=== PATIENT | female | born 1950 | race Two or more races ===

== ENCOUNTER 2017-08-03 07:00 | Outpatient (CLI) | payer OTHER ==
[~2017-08-03 07:00] MED LIST: LOTRIMIN AF12 GM TOP; NABUMETONE500 MG PO; PERCOCET 5/3251 TAB PO; PROVENTIL3 ML/2.5 M IH; SYNTHROID125 MCG PO; SYNTHROID75 MCG; VENTOLIN HFA18 GM IH
== END 2017-08-03 07:09 | disposition home or self-care (01) ==
LOC: LAB 07:00
DX: D64.89 Other specified anemias (principal); E11.9 Type 2 diabetes mellitus without complications; E78.2 Mixed hyperlipidemia; I10 Essential (primary) hypertension; E03.8 Other specified hypothyroidism

== ENCOUNTER 2017-09-28 07:39 | Outpatient (CLI) | payer OTHER | END 2017-09-28 07:49 | disposition home or self-care (01) | LOC: LAB 07:39 | DX: E04.1 Nontoxic single thyroid nodule (principal); E78.2 Mixed hyperlipidemia; N30.00 Acute cystitis without hematuria; R82.79 Other abnormal findings on microbiological examination of urine ==

== ENCOUNTER 2018-02-10 07:42 | Outpatient (CLI) | payer OTHER | END 2018-02-10 08:03 | disposition home or self-care (01) | LOC: LAB 07:42 | DX: D64.89 Other specified anemias (principal); I10 Essential (primary) hypertension; E11.9 Type 2 diabetes mellitus without complications; E78.2 Mixed hyperlipidemia; E03.8 Other specified hypothyroidism ==

== ENCOUNTER → 2018-02-13 12:54 | Outpatient (CLI) | payer OTHER | END | disposition home or self-care (01) | LOC: LAB 12:54 | DX: N30.01 Acute cystitis with hematuria (principal) ==

== ENCOUNTER 2018-05-29 06:47 | Outpatient (CLI) | payer OTHER | END 2018-05-29 06:52 | disposition home or self-care (01) | LOC: LAB 06:47 | DX: E03.8 Other specified hypothyroidism (principal); E78.2 Mixed hyperlipidemia; E55.9 Vitamin D deficiency, unspecified ==

== ENCOUNTER 2018-08-22 07:29 | Outpatient (CLI) | payer OTHER | END 2018-08-22 07:56 | disposition home or self-care (01) | LOC: LAB 07:29 | DX: D64.89 Other specified anemias (principal); E11.9 Type 2 diabetes mellitus without complications; E78.2 Mixed hyperlipidemia; I10 Essential (primary) hypertension; E03.8 Other specified hypothyroidism ==

== ENCOUNTER 2018-09-21 07:02 | Outpatient (CLI) | payer OTHER | END 2018-09-21 07:29 | disposition home or self-care (01) | LOC: LAB 07:02 | DX: D64.89 Other specified anemias (principal); E11.8 Type 2 diabetes mellitus with unspecified complications; E78.49 Other hyperlipidemia; I10 Essential (primary) hypertension; E03.8 Other specified hypothyroidism ==

== ENCOUNTER 2019-01-17 08:28 | Outpatient (CLI) | payer OTHER | END 2019-01-17 08:41 | disposition home or self-care (01) | LOC: LAB 08:28 | DX: D64.89 Other specified anemias (principal); E11.9 Type 2 diabetes mellitus without complications; E78.2 Mixed hyperlipidemia; K76.89 Other specified diseases of liver; E03.8 Other specified hypothyroidism; E55.9 Vitamin D deficiency, unspecified; R29.898 Other symptoms and signs involving the musculoskeletal system ==

== ENCOUNTER 2019-04-23 06:53 | Outpatient (CLI) | payer OTHER | END 2019-04-23 07:06 | disposition home or self-care (01) | LOC: LAB 06:53 | DX: D64.89 Other specified anemias (principal); E11.9 Type 2 diabetes mellitus without complications; E78.2 Mixed hyperlipidemia; E03.8 Other specified hypothyroidism; I10 Essential (primary) hypertension ==

== ENCOUNTER 2019-05-24 08:27 | Outpatient (CLI) | payer OTHER | END 2019-05-24 08:37 | disposition home or self-care (01) | LOC: TOM 08:27 | DX: R10.84 Generalized abdominal pain (principal) ==

== ENCOUNTER 2019-08-18 09:45 | Outpatient (CLI) | payer OTHER | END 2019-08-18 09:55 | disposition home or self-care (01) | LOC: LAB 09:45 | DX: D64.89 Other specified anemias (principal); E11.9 Type 2 diabetes mellitus without complications; E78.2 Mixed hyperlipidemia; I10 Essential (primary) hypertension; E03.8 Other specified hypothyroidism ==

== ENCOUNTER 2019-08-24 14:20 | Outpatient (CLI) | payer OTHER | END 2019-08-24 15:20 | disposition home or self-care (01) | LOC: NUCLEAR 14:20 | DX: M81.0 Age-related osteoporosis without current pathological fracture (principal) ==

== ENCOUNTER 2020-02-07 13:37 | Outpatient (CLI) | payer OTHER | END 2020-02-07 14:11 | disposition home or self-care (01) | LOC: MAMO-SONO 13:37 | PROVIDERS: ATTEND Specialist | DX: Z12.31 Encounter for screening mammogram for malignant neoplasm of breast (principal); N60.11 Diffuse cystic mastopathy of right breast; N60.12 Diffuse cystic mastopathy of left breast ==

== ENCOUNTER 2020-03-11 06:52 | Outpatient (CLI) | payer OTHER | END 2020-03-11 07:00 | disposition home or self-care (01) | LOC: LAB 06:52 | PROVIDERS: ATTEND Internal Medicine Sports Medicine | DX: D64.89 Other specified anemias (principal); E11.9 Type 2 diabetes mellitus without complications; E78.2 Mixed hyperlipidemia; I10 Essential (primary) hypertension; E03.8 Other specified hypothyroidism ==

== ENCOUNTER → 2020-05-19 07:07 | Outpatient (CLI) | payer OTHER | END | disposition home or self-care (01) | LOC: LAB 07:07 | PROVIDERS: ATTEND Internal Medicine Sports Medicine | DX: Z20.828 Contact with and (suspected) exposure to other viral communicable diseases (principal); E03.8 Other specified hypothyroidism; E04.8 Other specified nontoxic goiter ==

== ENCOUNTER 2020-08-22 08:02 | Outpatient (CLI) | payer OTHER | END 2020-08-22 08:19 | disposition home or self-care (01) | LOC: LAB 08:02 | PROVIDERS: ATTEND Internal Medicine Sports Medicine | DX: D64.89 Other specified anemias (principal); E11.9 Type 2 diabetes mellitus without complications; E78.2 Mixed hyperlipidemia; E03.8 Other specified hypothyroidism; I10 Essential (primary) hypertension ==

== ENCOUNTER 2020-10-08 11:23 | Outpatient (CLI) | payer OTHER | END 2020-10-08 13:08 | disposition home or self-care (01) | LOC: OFIC 805 11:23 | PROVIDERS: ATTEND Otolaryngology Otology & Neurotology | DX: H81.12 Benign paroxysmal vertigo, left ear (principal) ==

== ENCOUNTER 2020-11-25 07:14 | Outpatient (CLI) | payer OTHER | END 2020-11-25 07:22 | disposition home or self-care (01) | LOC: LAB 07:14 | PROVIDERS: ATTEND Internal Medicine Sports Medicine | DX: E03.8 Other specified hypothyroidism (principal); E04.1 Nontoxic single thyroid nodule; E78.2 Mixed hyperlipidemia; E55.9 Vitamin D deficiency, unspecified ==

== ENCOUNTER 2020-12-10 10:08 | Outpatient (CLI) | payer OTHER | END 2020-12-10 10:25 | disposition home or self-care (01) | LOC: TOM 10:08 | PROVIDERS: ATTEND Internal Medicine Sports Medicine | DX: J32.8 Other chronic sinusitis (principal) ==

== ENCOUNTER 2021-02-09 09:46 | Outpatient (CLI) | payer OTHER | END 2021-02-09 09:53 | disposition home or self-care (01) | LOC: MAMO-SONO 09:46 | PROVIDERS: ATTEND Specialist | DX: E04.1 Nontoxic single thyroid nodule (principal); Z12.31 Encounter for screening mammogram for malignant neoplasm of breast; Z87.898 Personal history of other specified conditions; N64.59 Other signs and symptoms in breast; N60.11 Diffuse cystic mastopathy of right breast; N60.12 Diffuse cystic mastopathy of left breast ==

== ENCOUNTER → 2021-04-13 06:55 | Outpatient (CLI) | payer OTHER | END | disposition home or self-care (01) | LOC: LAB 06:55 | PROVIDERS: ATTEND Internal Medicine Endocrinology, Diabetes & Metabolism | DX: D64.89 Other specified anemias (principal); D51.0 Vitamin B12 deficiency anemia due to intrinsic factor deficiency; E03.8 Other specified hypothyroidism; I10 Essential (primary) hypertension; E78.2 Mixed hyperlipidemia; E11.9 Type 2 diabetes mellitus without complications ==

== ENCOUNTER 2021-04-23 13:10 | Outpatient (CLI) | payer OTHER | END 2021-04-23 13:15 | disposition home or self-care (01) | LOC: NUCLEAR 13:10 | PROVIDERS: ATTEND Internal Medicine Sports Medicine | DX: M81.0 Age-related osteoporosis without current pathological fracture (principal) ==

== ENCOUNTER 2021-04-24 09:50 | Outpatient (CLI) | payer OTHER | END 2021-04-24 10:15 | disposition home or self-care (01) | LOC: PPH VACUNA 09:50 | PROVIDERS: ATTEND Emergency Medicine Pediatric Emergency Medicine | DX: Z23 Encounter for immunization (principal) ==

== ENCOUNTER 2021-04-27 13:03 | Emergency (ER) | payer OTHER ==
[~2021-04-27] VITALS: Ht 160 cm; Wt 69.4 kg
[2021-04-27] MEDS ORDERED: DICLOFENAC SODI50 MG PO (16:40)
== END 2021-04-27 17:53 | disposition home or self-care (01) ==
LOC: ER 13:03
DX: S90.122A Contusion of left lesser toe(s) without damage to nail, initial encounter (principal); W18.09XA Striking against other object with subsequent fall, initial encounter; Y93.89 Activity, other specified; Y92.512 Supermarket, store or market as the place of occurrence of the external cause; Y99.8 Other external cause status

== ENCOUNTER 2021-06-08 12:51 | Outpatient (CLI) | payer OTHER ==
[~2021-06-08 12:51] MED LIST changes: +DICLOFENAC SODI50 MG PO
== END 2021-06-08 12:59 | disposition home or self-care (01) ==
LOC: MRI 12:51
PROVIDERS: ATTEND Orthopaedic Surgery
DX: M48.02 Spinal stenosis, cervical region (principal); M47.892 Other spondylosis, cervical region
CPT/HCPCS: 72141

== ENCOUNTER 2021-06-15 08:57 | Outpatient (CLI) | payer OTHER | END 2021-06-15 09:05 | disposition home or self-care (01) | LOC: LAB 08:57 | PROVIDERS: ATTEND Internal Medicine Endocrinology, Diabetes & Metabolism | DX: E03.8 Other specified hypothyroidism (principal); E55.9 Vitamin D deficiency, unspecified; I10 Essential (primary) hypertension; E78.2 Mixed hyperlipidemia ==

== ENCOUNTER 2021-09-11 07:44 | Outpatient (CLI) | payer OTHER | END 2021-09-11 07:59 | disposition home or self-care (01) | LOC: LAB 07:44 | PROVIDERS: ATTEND Internal Medicine Sports Medicine | DX: D64.9 Anemia, unspecified (principal); E11.9 Type 2 diabetes mellitus without complications; E78.2 Mixed hyperlipidemia; I10 Essential (primary) hypertension; E03.8 Other specified hypothyroidism ==

== ENCOUNTER 2021-12-07 12:30 | Outpatient (CLI) | payer OTHER | END 2021-12-07 13:00 | disposition home or self-care (01) | LOC: PPH VACUNA 12:30 | PROVIDERS: ATTEND Emergency Medicine Pediatric Emergency Medicine | DX: Z23 Encounter for immunization (principal) ==

== ENCOUNTER 2022-07-08 11:05 | Outpatient (CLI) | payer OTHER | END 2022-07-08 11:16 | disposition home or self-care (01) | LOC: MAMO-SONO 11:05 | PROVIDERS: ATTEND Specialist | DX: N60.11 Diffuse cystic mastopathy of right breast (principal); N60.12 Diffuse cystic mastopathy of left breast; J44.1 Chronic obstructive pulmonary disease with (acute) exacerbation; J44.9 Chronic obstructive pulmonary disease, unspecified ==

== ENCOUNTER 2022-08-13 09:32 | Outpatient (CLI) | payer OTHER | END 2022-08-13 09:41 | disposition home or self-care (01) | LOC: TOM 09:32 | PROVIDERS: ATTEND Internal Medicine Pulmonary Disease | DX: J45.30 Mild persistent asthma, uncomplicated (principal); J98.11 Atelectasis; Z86.16 Personal history of COVID-19; R06.02 Shortness of breath ==

== ENCOUNTER 2022-09-11 08:03 | Outpatient (CLI) | payer OTHER | END 2022-09-11 08:11 | disposition home or self-care (01) | LOC: LAB 08:03 | PROVIDERS: ATTEND Internal Medicine Sports Medicine | DX: E03.8 Other specified hypothyroidism (principal); E78.2 Mixed hyperlipidemia; E04.1 Nontoxic single thyroid nodule ==

== ENCOUNTER 2023-01-21 08:02 | Outpatient (CLI) | payer OTHER | END 2023-01-21 08:03 | disposition home or self-care (01) | LOC: LAB 08:02 | PROVIDERS: ATTEND Internal Medicine Sports Medicine | DX: D64.9 Anemia, unspecified (principal); E11.9 Type 2 diabetes mellitus without complications; E78.2 Mixed hyperlipidemia; I10 Essential (primary) hypertension; E03.8 Other specified hypothyroidism; E55.9 Vitamin D deficiency, unspecified ==

== ENCOUNTER 2023-07-19 11:40 | Outpatient (CLI) | payer OTHER | END 2023-07-19 11:52 | disposition home or self-care (01) | LOC: MAMO-SONO 11:40 | PROVIDERS: ATTEND Internal Medicine Sports Medicine | DX: N60.11 Diffuse cystic mastopathy of right breast (principal); N60.12 Diffuse cystic mastopathy of left breast ==

== ENCOUNTER → 2023-07-21 14:04 | Outpatient (CLI) | payer OTHER | END | disposition home or self-care (01) | LOC: NUCLEAR 13:15 | PROVIDERS: ATTEND Internal Medicine Sports Medicine | DX: M81.0 Age-related osteoporosis without current pathological fracture (principal) ==

== ENCOUNTER 2023-08-20 07:34 | Outpatient (CLI) | payer OTHER ==
[2023-08-20 09:31] LABS: HEMATOCRIT 38.8 % (36.0-45.00); HEMOGLOBIN 13.3 g/dL (12.0-15.00); MEAN CELL VOLUME 90.6 fL (80.00-100.00); MEAN CORPUSCULAR HEMOGLOBIN 31.1 pg (27.00-32.0); MEAN CORPUSCULAR HGB CONC 34.3 g/dl (32.0-36.0); PLATELET COUNT 259 K/uL (150-450); RED BLOOD COUNT 4.28 M/uL (4.00-6.00)
[2023-08-20 09:45] LABS: URINE APPEARANCE Cloudy; URINE BILIRRUBIN Negative (NEGATIVE); URINE BLOOD Negative; URINE COLOR Yellow; URINE GLUCOSE Negative (NEGATIVE); URINE LEUKOCYTE Trace; URINE NITRATE Negative; URINE PROTEIN Negative (NEGATIVE); URINE UROBILINOGEN 0.2 E.U./dl
[2023-08-20 09:49] LABS: URINE BACTERIA 854.2 uL (0.0-1933); URINE EPITHELIAL CELLS 168.6 uL (0.0-38.8); URINE RBC 6.8 uL (0.0-20.8); URINE WBC 12.3 uL (0.0-23.2)
[2023-08-20 10:14] LABS: ALBUMIN 3.7 gm/dL (3.4-5.0); BILIRUBIN TOTAL 0.65 mg/dL (0.3-1.2); CALCIUM 9.1 mg/dL (8.5-10.1); CHOL HDL RATIO 2.7 (0-5.0); CREATININE SERUM 0.65 mg/dL (0.55-1.02); GFR 88.86; GLOBULINA 2.9 G/DL (2.4-3.5); POTASSIUM 4.32 mEq/L (3.5-5.1); T4 FREE 1.26 NG/ML (0.76-1.46); TOTAL PROTEIN 6.6 gm/dL (6.4-8.2); TSH 0.733 uIU/mL (0.358-3.74)
[2023-08-20 10:55] LABS: URINE MUCUS SCANT
== END 2023-08-20 07:35 | disposition home or self-care (01) ==
LOC: LAB 07:34
PROVIDERS: ATTEND Internal Medicine Sports Medicine
DX: E78.2 Mixed hyperlipidemia (principal); I11.9 Hypertensive heart disease without heart failure; E11.9 Type 2 diabetes mellitus without complications; E03.9 Hypothyroidism, unspecified; D64.9 Anemia, unspecified; I10 Essential (primary) hypertension; E03.8 Other specified hypothyroidism

== ENCOUNTER 2024-02-13 09:05 | Outpatient (CLI) | payer OTHER ==
[2024-02-13 10:43] LABS: ob NEGATIVE (NEGATIVE)
== END 2024-02-13 09:19 | disposition home or self-care (01) ==
LOC: LAB 09:05
PROVIDERS: ATTEND Internal Medicine Sports Medicine
DX: D50.9 Iron deficiency anemia, unspecified (principal)

== ENCOUNTER 2024-02-15 07:23 | Outpatient (CLI) | payer OTHER ==
[2024-02-15 07:59] LABS: HEMATOCRIT 37.2 % (36.0-45.00); MEAN CELL VOLUME 88.2 fL (80.00-100.00); MEAN CORPUSCULAR HEMOGLOBIN 30.9 pg (27.00-32.0); PLATELET COUNT 248 K/uL (150-450); RED BLOOD COUNT 4.21 M/uL (4.00-6.00); RED CELL DISTRIBUTION WIDTH 13.3 % (11.5-14.5)
[2024-02-15 08:32] LABS: URINE APPEARANCE Clear; URINE BILIRRUBIN Negative (NEGATIVE); URINE BLOOD Negative; URINE COLOR Yellow; URINE GLUCOSE Negative (NEGATIVE); URINE KETONE Trace (NEGATIVE); URINE LEUKOCYTE Negative; URINE NITRATE Negative; URINE PROTEIN Negative (NEGATIVE); URINE UROBILINOGEN 0.2 E.U./dl
[2024-02-15 08:36] LABS: URINE BACTERIA 414.5 uL (0.0-1933); URINE EPITHELIAL CELLS 44.1 uL (0.0-38.8); URINE RBC 4.7 uL (0.0-20.8); URINE WBC 15.3 uL (0.0-23.2)
[2024-02-15 09:21] LABS: ALBUMIN 3.7 gm/dL (3.4-5.0); BILIRUBIN TOTAL 0.66 mg/dL (0.3-1.2); CHOL HDL RATIO 3.2 (0-5.0); CREATININE SERUM 0.69 mg/dL (0.55-1.02); GFR 82.94; GLOBULINA 3.2 G/DL (2.4-3.5); POTASSIUM 4.65 mEq/L (3.5-5.1); T4 FREE 1.26 NG/ML (0.76-1.46); TOTAL PROTEIN 6.9 gm/dL (6.4-8.2)
[2024-02-15 09:23] LABS: TSH 0.179 uIU/mL (0.358-3.74)
== END 2024-02-15 07:32 | disposition home or self-care (01) ==
LOC: LAB 07:23
PROVIDERS: ATTEND Internal Medicine Sports Medicine
DX: D64.9 Anemia, unspecified (principal); E55.9 Vitamin D deficiency, unspecified; E11.9 Type 2 diabetes mellitus without complications; E78.2 Mixed hyperlipidemia; E03.8 Other specified hypothyroidism

== ENCOUNTER 2024-03-20 09:31 | Outpatient (CLI) | payer OTHER ==
[2024-03-20 11:49] LABS: MYCOPLASMA PNEUMONIAE IGM NON REACTIVE (NO REACTIVE)
== END 2024-03-20 09:48 | disposition home or self-care (01) ==
LOC: LAB 09:31
PROVIDERS: ATTEND Internal Medicine Pulmonary Disease
DX: J45.51 Severe persistent asthma with (acute) exacerbation (principal); J12.82 Pneumonia due to coronavirus disease 2019; J09.X2 Influenza due to identified novel influenza A virus with other respiratory manifestations; J10.1 Influenza due to other identified influenza virus with other respiratory manifestations; R50.9 Fever, unspecified

== ENCOUNTER 2024-03-31 11:10 | Inpatient (IN) | payer OTHER ==
[~2024-03-31] VITALS: Ht 165.1 cm; Wt 68.0 kg
--- NOTE | 2024-03-31 11:22 | NUR ---
PACIENTE ALERTA Y ORIENTADA X3 QUIEN REFIERE BOBO DOLOR EN EL AREA DEL ABDOMEN LADO DERECHO Y VOMITOS DESDE LA MADRUGADA.
[2024-03-31] MEDS ORDERED: ONDANSETRON HCL 2 MG/ML VIAL ONE ×2 (11:44→18:20)
[2024-03-31] MEDS ORDERED: KETOROLAC TROMETHAMINE 60 MG VIAL IM ONE ×2 (11:44→11:45)
[2024-03-31] MEDS ORDERED: 0.9 % SODIUM CHLORIDE 1,000 ML IV ONE (11:45)
[2024-03-31] MEDS ORDERED: ONDANSETRON HCL 2 MG/ML VIAL IV ONE (11:45)
[2024-03-31] MEDS ORDERED: FAMOtidine 10 MG/ML (4ML VIAL) IV ONE (11:45)
[2024-03-31] MEDS ORDERED: FAMOTIDINE/PF 20 MG/2 ML VIAL ONE ×2 (11:45→17:15)
--- NOTE | 2024-03-31 12:04 | NUR ---
PTE ALERTA Y ORIENTADA X3. GAMAL VENEGAS EDUCA A PTE SOBRE TX MEDICO, LA MISMA REFIERE ENTENDER. SE WENDI MUESTRAS DE LAB Y SE ADMINISTRAN MEDICAMENTOS BAJO MEIDAS ASEPTICAS, SE HACE ENTREGA DE ENVASE PARA U/A PENDIENTE.
[2024-03-31 12:09] LABS: HEMATOCRIT 40.3 % (36.0-45.00); HEMOGLOBIN 13.7 g/dL (12.0-15.00); MEAN CELL VOLUME 89.1 fL (80.00-100.00); MEAN CORPUSCULAR HEMOGLOBIN 30.3 pg (27.00-32.0); PLATELET COUNT 269 K/uL (150-450); RED BLOOD COUNT 4.52 M/uL (4.00-6.00); RED CELL DISTRIBUTION WIDTH 13.9 % (11.5-14.5)
[2024-03-31 12:20] LABS: INR 0.98; PARTIAL THROMBOPLASTIN TIME 24.8 SECONDS (22.0-34.0); PROTHROMBIN TIME 10.7 SECONDS (9.0-11.5)
[2024-03-31 12:41] LABS: ALBUMIN 3.4 gm/dL (3.4-5.0); BILIRUBIN TOTAL 0.94 mg/dL (0.3-1.2); CREATININE SERUM 0.87 mg/dL (0.55-1.02); GFR 63.47; GLOBULINA 3.1 G/DL (2.4-3.5); POTASSIUM 3.31 mEq/L (3.5-5.1); TOTAL PROTEIN 6.5 gm/dL (6.4-8.2)
--- NOTE | 2024-03-31 15:56 | NUR ---
PTE ALERTA Y ORIENTADA X3 EN CAMA CON BARANDAS ELEVADAS. PENDIENTE CONSULTA CON MD MIKY DOOLEY. SE MANTIENE BAJO OBSERVACION POR CAMBIOS SIGNIFICATIVOS.
[2024-03-31] MEDS ORDERED: PIPERACILLIN/TAZOBACTAM SODIUM 3.375 GM VIAL IV ONE ×2 (16:45→17:15)
[2024-03-31] MEDS ORDERED: ONDANSETRON HCL 4 MG in 0.9 % SODIUM CHLORIDE 50 ML IV PRN (16:45)
[2024-03-31] MEDS ORDERED: 0.9 % SODIUM CHLORIDE 1,000 ML IV SCH (16:45)
[2024-03-31] MEDS ORDERED: FAMOTIDINE/PF 20 MG in 0.9 % SODIUM CHLORIDE 100 ML IV SCH (17:00)
[2024-03-31 18:15] VITALS: BP 98/55; O2SAT 98
[2024-03-31] MEDS ORDERED: SUGAMMADEX SODIUM 200 MG/2 ML VIAL IV ONE ×2 (21:58→22:15)
[2024-03-31] MEDS ORDERED: MORPHINE SULFATE 4 MG/ML VIAL IV ONE (23:10)
[2024-03-31] MEDS ORDERED: MEPERIDINE HCL 25 MG/ML AMPUL IV ONE (23:40)
[2024-04-01] MEDS ORDERED: ONDANSETRON HCL 2 MG/ML VIAL ONE (00:39)
[2024-04-01 01:17] VITALS: BP 99/53; O2SAT 99
[2024-04-01] MEDS ORDERED: KETOROLAC TROMETHAMINE 30 MG VIAL IV PRN (04:30)
[2024-04-01] MEDS ORDERED: METOCLOPRAMIDE HCL 5 MG/ML VIAL IV SCH (05:00)
[2024-04-01 08:00] VITALS: BP 142/65; O2SAT 95
[2024-04-01] MEDS ORDERED: SIMETHICONE 125 MG CAPSULE PO SCH (09:00)
[2024-04-01] MEDS ORDERED: SUCRALFATE 1 G TABLET PO SCH (09:00)
[2024-04-01 11:55] LABS: CREATININE SERUM 0.74 mg/dL (0.55-1.02); GFR 76.51; POTASSIUM 4.69 mEq/L (3.5-5.1)
[2024-04-01 16:30] VITALS: BP 165/72; O2SAT 98
[2024-04-01] MEDS ORDERED: PIPERACILLIN/TAZOBACTAM SODIUM 3.375 GM VIAL IV SCH (20:00)
[2024-04-02 00:48] VITALS: BP 136/79; O2SAT 100
[2024-04-02 08:53] VITALS: BP 138/68; O2SAT 94
[2024-04-02 17:27] VITALS: BP 179/79; O2SAT 96
[2024-04-03 00:33] VITALS: BP 150/71; O2SAT 95
[2024-04-03 07:01] LABS: HEMATOCRIT 32.4 % (36.0-45.00); HEMOGLOBIN 11.3 g/dL (12.0-15.00); MEAN CELL VOLUME 89.1 fL (80.00-100.00); MEAN CORPUSCULAR HEMOGLOBIN 31.1 pg (27.00-32.0); MEAN CORPUSCULAR HGB CONC 34.9 g/dl (32.0-36.0); PLATELET COUNT 173 K/uL (150-450); RED BLOOD COUNT 3.64 M/uL (4.00-6.00); RED CELL DISTRIBUTION WIDTH 13.6 % (11.5-14.5)
[2024-04-03 09:18] VITALS: BP 125/72; O2SAT 96
[2024-04-03 16:00] VITALS: BP 150/68; O2SAT 97
[2024-04-04 00:14] VITALS: BP 141/69; O2SAT 95
[2024-04-04 08:00] VITALS: BP 115/80; O2SAT 96
[2024-04-04 16:00] VITALS: BP 155/70; O2SAT 96
[2024-04-04 23:58] VITALS: BP 143/61; O2SAT 94
[2024-04-05 08:40] VITALS: BP 153/68; O2SAT 97
[2024-04-05 16:00] VITALS: BP 167/74; O2SAT 96
[2024-04-05] MEDS ORDERED: BUDESONIDE 0.5 MG/2 ML AMPUL.NEB IH ONE (17:49)
[2024-04-05] MEDS ORDERED: GUAIFENESIN 200 MG/10 ML BLIST.PACK PO SCH (18:00)
[2024-04-05] MEDS ORDERED: ALBUTEROL SULFATE 3 ML/2.5 MG AMPUL.NEB IH SCH (18:00)
[2024-04-05] MEDS ORDERED: BUDESONIDE 0.25 MG/2 ML AMPUL.NEB IH SCH (21:00)
[2024-04-06 00:06] VITALS: BP 138/75; O2SAT 96
[2024-04-06 08:16] VITALS: BP 166/70; O2SAT 98
== END 2024-04-06 13:25 | disposition home or self-care (01) | DRG 399 ==
LOC: ER 11:11 → SURG 17:17 → SEC-K 17:17 → SURG 22:49
PROVIDERS: General Practice; Internal Medicine Infectious Disease; Surgery; ADMIT Internal Medicine; ATTEND Internal Medicine
PROC: 0W9G4ZZ Drainage of Peritoneal Cavity, Percutaneous Endoscopic Approach (ICD-10-PCS; 2024-03-31)
PROC: BW21YZZ Computerized Tomography (CT Scan) of Abdomen and Pelvis using Other Contrast (ICD-10-PCS; 2024-03-31)
PROC: 0DTJ4ZZ Resection of Appendix, Percutaneous Endoscopic Approach (ICD-10-PCS; principal; 2024-03-31 18:00)
PROC: 3E0F7GC Introduction of Other Therapeutic Substance into Respiratory Tract, Via Natural or Artificial Opening (ICD-10-PCS; 2024-04-05)
DX: K35.33 Acute appendicitis with perforation, localized peritonitis, and gangrene, with abscess (principal); B96.20 Unspecified Escherichia coli [E. coli] as the cause of diseases classified elsewhere; B96.89 Other specified bacterial agents as the cause of diseases classified elsewhere; R05.9 Cough, unspecified; J45.909 Unspecified asthma, uncomplicated; E03.9 Hypothyroidism, unspecified

== ENCOUNTER 2024-06-30 08:53 | Outpatient (CLI) | payer OTHER ==
[2024-06-30 10:51] LABS: T4 FREE 0.97 NG/ML (0.76-1.46)
[2024-06-30 10:58] LABS: TSH 11.1 uIU/mL (0.358-3.74)
== END 2024-06-30 09:01 | disposition home or self-care (01) ==
LOC: LAB 08:53
PROVIDERS: ATTEND Internal Medicine Sports Medicine
DX: E03.8 Other specified hypothyroidism (principal); E04.1 Nontoxic single thyroid nodule; E04.9 Nontoxic goiter, unspecified

== ENCOUNTER 2024-08-09 23:53 | Emergency (ER) | payer OTHER ==
[~2024-08-09] VITALS: Ht 160 cm; Wt 67.1 kg
[2024-08-10] MEDS ORDERED: ACETAMINOPHEN 500 MG GEL..CAP PO ONE (03:49)
[2024-08-10 03:55] LABS: HEMATOCRIT 39.6 % (36.0-45.00); HEMOGLOBIN 13.6 g/dL (12.0-15.00); MEAN CELL VOLUME 88.9 fL (80.00-100.00); MEAN CORPUSCULAR HEMOGLOBIN 30.4 pg (27.00-32.0); MEAN CORPUSCULAR HGB CONC 34.2 g/dl (32.0-36.0); PLATELET COUNT 266 K/uL (150-450); RED BLOOD COUNT 4.45 M/uL (4.00-6.00)
[2024-08-10 04:23] LABS: ALBUMIN 3.7 gm/dL (3.4-5.0); BILIRUBIN TOTAL 0.4 mg/dL (0.3-1.2); CALCIUM 9.2 mg/dL (8.5-10.1); CREATININE SERUM 0.72 mg/dL (0.55-1.02); GFR 78.75; GLOBULINA 3.7 G/DL (2.4-3.5); POTASSIUM 4.31 mEq/L (3.5-5.1); TOTAL PROTEIN 7.4 gm/dL (6.4-8.2)
== END 2024-08-10 06:47 | disposition home or self-care (01) ==
LOC: ER 23:53
DX: S00.83XA Contusion of other part of head, initial encounter (principal); W07.XXXA Fall from chair, initial encounter; Y93.89 Activity, other specified; Y92.59 Other trade areas as the place of occurrence of the external cause

== ENCOUNTER 2024-08-14 11:37 | Outpatient (CLI) | payer OTHER | END 2024-08-14 11:55 | disposition home or self-care (01) | LOC: MRI 11:37 | PROVIDERS: ATTEND Internal Medicine Sports Medicine | DX: R07.89 Other chest pain (principal); S00.93XA Contusion of unspecified part of head, initial encounter | CPT/HCPCS: 70551 ==

== ENCOUNTER 2024-11-13 06:43 | Outpatient (CLI) | payer OTHER ==
[2024-11-13 07:22] LABS: URINE APPEARANCE Clear; URINE BILIRRUBIN Negative (NEGATIVE); URINE BLOOD Negative; URINE COLOR Yellow; URINE GLUCOSE Negative (NEGATIVE); URINE KETONE Negative (NEGATIVE); URINE LEUKOCYTE Trace; URINE NITRATE Negative; URINE PROTEIN Negative (NEGATIVE); URINE UROBILINOGEN 0.2 E.U./dl
[2024-11-13 07:26] LABS: URINE BACTERIA 2041.4 uL (0.0-1933); URINE EPITHELIAL CELLS 86.2 uL (0.0-38.8); URINE RBC 4.8 uL (0.0-20.8); URINE WBC 7.9 uL (0.0-23.2)
[2024-11-13 07:33] LABS: HEMATOCRIT 39.3 % (36.0-45.00); HEMOGLOBIN 13.5 g/dL (12.0-15.00); MEAN CELL VOLUME 91.8 fL (80.00-100.00); MEAN CORPUSCULAR HEMOGLOBIN 31.6 pg (27.00-32.0); MEAN CORPUSCULAR HGB CONC 34.5 g/dl (32.0-36.0); PLATELET COUNT 274 K/uL (150-450); RED BLOOD COUNT 4.28 M/uL (4.00-6.00); RED CELL DISTRIBUTION WIDTH 13.2 % (11.5-14.5)
[2024-11-13 07:42] LABS: URINE CAST 0.58 uL (0.0-1.40)
[2024-11-13 08:26] LABS: ALBUMIN 3.5 gm/dL (3.4-5.0); BILIRUBIN TOTAL 0.59 mg/dL (0.3-1.2); CALCIUM 9.2 mg/dL (8.5-10.1); CHOL HDL RATIO 3.6 (0-5.0); CREATININE SERUM 0.71 mg/dL (0.55-1.02); GFR 80.04; GLOBULINA 3.2 G/DL (2.4-3.5); POTASSIUM 4.58 mEq/L (3.5-5.1); T4 FREE 1.14 NG/ML (0.76-1.46); TOTAL PROTEIN 6.7 gm/dL (6.4-8.2)
[2024-11-13 08:37] LABS: TSH 5.31 uIU/mL (0.358-3.74)
== END 2024-11-13 06:56 | disposition home or self-care (01) ==
LOC: LAB 06:43
PROVIDERS: ATTEND Internal Medicine Sports Medicine
DX: D64.9 Anemia, unspecified (principal); E11.9 Type 2 diabetes mellitus without complications; E78.2 Mixed hyperlipidemia; I10 Essential (primary) hypertension; E03.8 Other specified hypothyroidism

== ENCOUNTER 2025-02-11 08:47 | Outpatient (CLI) | payer OTHER ==
[2025-02-11 09:35] LABS: BASO % 0.6 % (0.1-1.2); EOS # 0.29 (0.04-0.54); EOS % 5.7 % (0.7-7.0); LYMPH # 1.29 (1.18-3.74); LYMPH % 25.4 % (19.3-53.1); MEAN PLATELET VOLUME 10.60 fl (9.4-12.4); MONO # 0.36 (0.24-0.82); MONO % 7.1 % (4.7-12.5); NEUT # 3.09 (1.56-6.13); NEUT % 60.8 % (34.0-71.1); RED CELL DISTRIBUTION WIDTH 11.8 % (11.6-14.4)
[2025-02-11 09:39] LABS: URINE APPEARANCE Cloudy; URINE BILIRRUBIN Negative (NEGATIVE); URINE COLOR Yellow; URINE GLUCOSE Negative (NEGATIVE); URINE KETONE Negative (NEGATIVE); URINE LEUKOCYTE Trace; URINE NITRATE Negative; URINE PROTEIN Negative (NEGATIVE); URINE UROBILINOGEN 0.2 E.U./dl
[2025-02-11 09:40] LABS: URINE CAST 3.66 uL (0.0-1.40); URINE EPITHELIAL CELLS 160.7 uL (0.0-38.8); URINE RBC 8.9 uL (0.0-20.8); URINE WBC 96.6 uL (0.0-23.2)
[2025-02-11 09:46] LABS: URINE BACTERIA > 9821.5 uL (0.0-1933); URINE BLOOD TRACES
[2025-02-11 10:35] LABS: ALT/SGPT 18.0 U/L (12-78); AST/SGOT 12.0 U/L (15-37); BILIRUBIN TOTAL 0.59 mg/dL (0.3-1.2); BUN CREA RATIO 19.0 (7.0-25.0); CHOL HDL RATIO 4.0 (0-5.0); CREATININE SERUM 0.63 mg/dL (0.55-1.02); GFR 91.88; GLOBULINA 3.0 G/DL (2.4-3.5); GLUCOSE FASTING 93.0 mg/dL (65-100); HDL 55.0 mg/dl (40-60); LDL 137.0 mg/dl (0-130); OSMOLALITY SERUM 288.0 MOSM/KG (275-295); T4 FREE 1.18 NG/ML (0.76-1.46); TSH 3.09 uIU/mL (0.358-3.74); VLDL 27.0 (0-39)
== END 2025-02-11 08:53 | disposition home or self-care (01) ==
LOC: LAB 08:47
PROVIDERS: ATTEND Internal Medicine Sports Medicine
DX: D64.9 Anemia, unspecified (principal); E11.9 Type 2 diabetes mellitus without complications; E78.2 Mixed hyperlipidemia; I10 Essential (primary) hypertension; E03.8 Other specified hypothyroidism; E55.9 Vitamin D deficiency, unspecified

== ENCOUNTER 2025-02-12 12:13 | Outpatient (CLI) | payer OTHER | END 2025-02-12 12:19 | disposition home or self-care (01) | LOC: MAMO-SONO 12:13 | PROVIDERS: ATTEND Specialist | DX: N60.11 Diffuse cystic mastopathy of right breast (principal); N60.12 Diffuse cystic mastopathy of left breast; Z12.31 Encounter for screening mammogram for malignant neoplasm of breast ==

== ENCOUNTER 2025-02-12 13:30 | Outpatient (CLI) | payer OTHER | END 2025-02-12 13:33 | disposition home or self-care (01) | LOC: LAB 13:30 | PROVIDERS: ATTEND Specialist | DX: N39.0 Urinary tract infection, site not specified (principal) ==

== ENCOUNTER 2025-06-10 08:31 | Outpatient (CLI) | payer OTHER ==
[2025-06-10 10:22] LABS: URINE APPEARANCE Clear; URINE BILIRRUBIN Negative (NEGATIVE); URINE BLOOD Negative; URINE COLOR Yellow; URINE GLUCOSE Negative (NEGATIVE); URINE KETONE Negative (NEGATIVE); URINE LEUKOCYTE Negative; URINE NITRATE Negative; URINE PROTEIN Negative (NEGATIVE); URINE UROBILINOGEN 0.2 E.U./dl
[2025-06-10 10:26] LABS: URINE BACTERIA 88.7 uL (0.0-1933); URINE EPITHELIAL CELLS 3.9 uL (0.0-38.8); URINE RBC 2.6 uL (0.0-20.8); URINE WBC 3.6 uL (0.0-23.2)
[2025-06-10 10:28] LABS: URINE CAST 0.00 uL (0.0-1.40)
[2025-06-10 11:44] LABS: BUN CREA RATIO 20.0 (7.0-25.0); CREATININE SERUM 0.66 mg/dL (0.55-1.02); GFR 87.07; GLUCOSE FASTING 94.0 mg/dL (65-100); OSMOLALITY SERUM 285.0 MOSM/KG (275-295)
== END 2025-06-10 08:32 | disposition home or self-care (01) ==
LOC: LAB 08:31
PROVIDERS: ATTEND Specialist
DX: M26.649 Arthritis of unspecified temporomandibular joint (principal); N39.0 Urinary tract infection, site not specified; R22.1 Localized swelling, mass and lump, neck; D11.0 Benign neoplasm of parotid gland; R22.9 Localized swelling, mass and lump, unspecified

== ENCOUNTER 2025-06-11 09:42 | Outpatient (CLI) | payer OTHER | END 2025-06-11 09:45 | disposition home or self-care (01) | LOC: TOM 09:42 | PROVIDERS: ATTEND Otolaryngology | DX: H91.8X1 Other specified hearing loss, right ear (principal); M26.643 Arthritis of bilateral temporomandibular joint | CPT/HCPCS: 70553 ==